=== PATIENT | male | born 1940 | race African-American/Black ===

== ENCOUNTER 2017-08-12 07:45 | Emergency (ER) | payer OTHER ==
[~2017-08-12 07:45] MED LIST: AMLO10 PO; COUM5TAB PO; ENAL20TA81 PO; SIMV20 PO; VENTAER INH
[2017-08-12] MEDS ORDERED: CALCIUM CHLORIDE 10% SOLN 1 GRAM/10 ML SYR IV ONE (07:46)
[2017-08-12] MEDS ORDERED: SODIUM BICARBONATE 8.4% INJ 50 MEQ/50 ML SYR IV ONE (07:46)
[2017-08-12] MEDS ORDERED: EPINEPHrine HCL (1:10,000) 1 MG/10 ML SYRINGE IV ONE (07:46)
--- NOTE | 2017-08-12 08:22 | PD ---
HPI Chief Complaint: Code Blue Time Seen by Provider: 08:04 Travel History International Travel<30 days: No Contact w/Intl Traveler<30days: No Traveled to known affect area: No History of Present Illness HPI 77yo M with PMH of HTN, DVT on coumadin presents to the ED with [facility] as PEA arrest. Pt was found unresponsive by for unknown time but when [facility] arrived, pt was pulseless and CPR started. Pt was given epinephrine x1 by [facility]. They started CPR at 7:29am. We continue CPR and pt was still in PEA arrest and given an additional 5 epi, calcium chloride, sodium bicarb and NS IVF. Pt had bilateral, equal breath sounds and was bagged with BVM with no resistance. PFSH Past Medical History ?: Not Social History Tobacco Use: No Allergies-Medications (Allergen,Severity, Reaction): Coded Allergies: No Allergy Information Available (Unverified , 08/12/17) Review of Systems ROS Limitations: Unresponsive Physical Exam Narrative GENERAL: 77yo M unresponsive. SKIN: Focused skin assessment warm/dry. HEAD: Atraumatic. Normocephalic. EYES: Pupils dilated and unreactive to light bilaterally. ENT: No nasal bleeding or discharge. Mucous membranes pink and moist. NECK: Trachea midline. No JVD. CARDIOVASCULAR: Pulseless. RESPIRATORY: Breath sounds equal bilaterally. GASTROINTESTINAL: Abdomen soft, nondistended. MUSCULOSKELETAL: No obvious deformities. No clubbing. No cyanosis. No edema. NEUROLOGICAL: Unresponsive. Data Data Orders Orders Ondansetron Inj (Zofran Inj) (08/12/17 17:02) [facility] Medical Decision Making Medical Screen Exam Complete: Yes Emergency Medical Condition: Yes Differential Diagnosis PEA arrest secondary to [place] vs. PE vs. ICH Narrative Course 77yo M was brought in as PEA arrest. Unknown down time since found his unresponsive and did not start CPR. Pt was easily bagged with BVM with pulse ox of 100% and equal bilateral breath sounds so CPR was not interrupted to intubate. Continue CPR for total of 30 minutes and time of called at 8am. I spoke to patient's and answered all questions. Said he has been vomiting and having diarrhea and has not been feeling well for 2 days. My charge nurse will contact medical coder but this is unlikely to be a medical coder case. Pt has primary care physician Dr. Briscoe and my [employer] service unit operator will notify them to sign certificate. Diagnosis Primary Impression: Cardiac arrest Disposition: 20 Condition: Radha Saavedra DO Aug 12, 2017 08:22
[2017-08-12] MEDS ORDERED: ONDANSETRON HCL 4 MG/2 ML VIAL ONE (17:02)
== END 2017-08-12 18:51 | disposition expired ==
LOC: EDBD 07:45 → NEPC 07:45 → MERGE 07:45 → NEPC 18:51
DX: I46.9 Cardiac arrest, cause unspecified (principal)
CPT/HCPCS: 92950; 99283; J0171; J2405